=== PATIENT | male | born 1980 | race Caucasian/White ===

== ENCOUNTER 2020-02-15 02:49 | Emergency (ER) | payer OTHER ==
[~2020-02-15] VITALS: Ht 185.4 cm; Wt 111.4 kg
[~2020-02-15 02:49] MED LIST: DIAZ5TAB PO
[2020-02-15] MEDS ORDERED: ketorolac trometh. 30mg/ml inj. IV ONE (02:55)
[2020-02-15 02:56] VITALS: BP 144/82
[2020-02-15] MEDS ORDERED: LIDOcaine 1% W/epiNEPHrine 1:200,000 10ml vial IJ ONE (03:00)
[2020-02-15 04:41] LABS: NEUTROPHILS,SYNOVIAL FLUID 100 % (0-25)
[2020-02-15 04:43] LABS: APPEARANCE,SYNOVIAL FLUID CLOUDY; COLOR,SYNOVIAL FLUID YELLOW; SYN RBC 1250 /CU MM (0); SYN WBC 23750 /CU MM (0-200)
== END 2020-02-15 03:44 | disposition home or self-care (01) ==
LOC: ER 02:49
DX: M70.51 Other bursitis of knee, right knee (principal); Z72.89 Other problems related to lifestyle; Z79.899 Other long term (current) drug therapy; Y93.89 Activity, other specified
CPT/HCPCS: 20610; 73560; 89051; 96374; 99284; J1885

== ENCOUNTER 2020-02-18 10:26 | Emergency (ER) | payer OTHER ==
[~2020-02-18] VITALS: Ht 185.4 cm; Wt 111.4 kg
[2020-02-18 10:37] VITALS: BP 133/83
[2020-02-18] MEDS ORDERED: cephalexin 250mg capsule PO ONE (11:25)
[2020-02-18] MEDS ORDERED: HYDR-4353 PO (11:30)
[2020-02-18] MEDS ORDERED: CEPH500C5 PO (11:30)
== END 2020-02-18 11:52 | disposition home or self-care (01) ==
LOC: ER 10:27
DX: M70.51 Other bursitis of knee, right knee (principal); Z72.89 Other problems related to lifestyle; Z79.899 Other long term (current) drug therapy; Y93.89 Activity, other specified
CPT/HCPCS: 29505; 99283

== ENCOUNTER 2020-02-21 09:13 | Inpatient (IN) | payer OTHER ==
[~2020-02-21] VITALS: Ht 154.9 cm; Wt 111.4 kg
[~2020-02-21 09:13] MED LIST changes: +CEPH500C5 PO; +HYDR-4353 PO
[2020-02-21] MEDS ORDERED: vancomycin/NS 1 GM ADD-VANTAGE 250 ML IV ONE (09:40)
[2020-02-21] MEDS ORDERED: normal saline 1000ML IV soln IVB ONE (09:40)
[2020-02-21] MEDS ORDERED: piperacillin/tazo 3.375gm/50ml 50 ML IV ONE (09:40)
[2020-02-21 09:51] LABS: BASOPHILS # (AUTO) 0.1 X10'3 (0-0.2); BASOPHILS % (AUTO) 0.8 % (0-1); EOSINOPHILS # (AUTO) 0.1 X10'3 (0-0.9); EOSINOPHILS % (AUTO) 1.2 % (0-6); HEMATOCRIT 41.3 % (42.0-52.0); HEMOGLOBIN 14.1 g/dl (14.0-17.9); LYMPHOCYTES # (AUTO) 1.6 X10'3 (1.1-4.8); LYMPHOCYTES % (AUTO) 14.6 % (21-51); MEAN CORPUSCULAR HEMOGLOBIN 28.9 PG (27.0-31.0); MEAN CORPUSCULAR HGB CONC 34.2 g/dL (33.0-36.5); MEAN CORPUSCULAR VOLUME 84.6 FL (78-98); MEAN PLATELET VOLUME 8.4 FL (7.4-10.4); MONOCYTES % (AUTO) 8.7 % (2-12); NEUTROPHILS # (AUTO) 8.4 X10'3 (1.8-7.7); NEUTROPHILS % (AUTO) 74.7 % (42-75); PLATELET COUNT 251 X10'3 (140-440); RED BLOOD COUNT 4.89 X10'6 (4.70-6.10); RED CELL DISTRIBUTION WIDTH 12.5 % (11.5-14.5); WHITE BLOOD COUNT 11.2 X10'3 (4.5-11.0)
[2020-02-21 10:04] LABS: ALANINE AMINOTRANSFERASE 210 U/L (12-78); ALBUMIN 3.3 G/DL (3.4-5.0); ALBUMIN/GLOBULIN RATIO 0.7 (1.1-1.5); ALKALINE PHOSPHATASE 279 IU/L (46-116); ANION GAP 10 (8-16); ASPARTATE AMINO TRANSFERASE 56 U/L (10-37); BILIRUBIN,TOTAL 0.6 MG/DL (0.1-1.0); BLOOD UREA NITROGEN 10 MG/DL (7-18); BUN/CREATININE RATIO 10.4 (5.4-32.0); CALCIUM 9.2 MG/DL (8.5-10.1); CHLORIDE 100 MMOL/L (99-107); CREATININE 0.96 MG/DL (0.60-1.10); GLUCOSE 119 MG/DL (70-104); POTASSIUM 3.2 MMOL/L (3.5-5.1); SODIUM 135 MMOL/L (135-145); TOTAL CARBON DIOXIDE 24.8 MMOL/L (24-32); eGFR 86 ML/MIN
[2020-02-21] MEDS ORDERED: LIDOcaine 1% 30ml preserv. free vial IJ ONE (10:10)
--- NOTE | 2020-02-21 10:14 | NUR ---
Dr Fallon in room for procedure to right knee. Area prepped with betadine scrub and hair clipped from surgical site. Area numbed with regular lidocaine.
[2020-02-21] MEDS ORDERED: morphine 4 MG/ML inj SYRINge IV ONE (10:25)
[2020-02-21] MEDS ORDERED: ondansetron/PF 4mg/2ml inj IV ONE (10:25)
[2020-02-21] MEDS ORDERED: magnesium hydroxide 30ml (MOM) UD suspension PO PRN (10:30)
[2020-02-21] MEDS ORDERED: HYDROcodone/acetaminophen 5mg/325mg tablet PO PRN (10:30)
[2020-02-21] MEDS ORDERED: potassium Cl 20 mEq SR tablet PO PRN (10:30)
[2020-02-21] MEDS ORDERED: magnesium 2GM in 50ml NS 50 ML IV PRN (10:30)
[2020-02-21] MEDS ORDERED: acetaminophen 325mg tablet PO PRN ×2 (10:30)
[2020-02-21] MEDS ORDERED: bisacodyl 10mg suppository rectal RC PRN (10:30)
[2020-02-21] MEDS ORDERED: morphine 2 MG/ML inj. syringe IV PRN ×2 (10:30)
[2020-02-21] MEDS ORDERED: magnesium 4gm in 100ml NS 100 ML IV PRN (10:30)
[2020-02-21] MEDS ORDERED: magnesium Cl slow-release 64mg tablet PO PRN (10:30)
[2020-02-21] MEDS ORDERED: acetaminophen 650mg rectal suppository RC PRN (10:30)
[2020-02-21] MEDS ORDERED: ondansetron/PF 4mg/2ml inj IV PRN (10:30)
[2020-02-21] MEDS ORDERED: mag hydrox/Alum hydrox/simeth 30ml oral suspension PO PRN (10:30)
[2020-02-21] MEDS ORDERED: potassium CL 10mEq/100ml bag 100 ML IV PRN ×2 (10:30)
[2020-02-21] MEDS ORDERED: diphenhydrAMINE 25mg capsule PO PRN (10:30)
[2020-02-21] MEDS: normal saline 1000ml 1,000 ML IV SCH ×2 (11:06→20:30)
[2020-02-21 11:09] LABS: HEMOGLOBIN A1C 5.1 % (4.5-6.2)
[2020-02-21] MEDS: HYDROcodone/acetaminophen 10/325mg tab PO PRN ×3 (11:12→23:27)
[2020-02-21] MEDS ORDERED: CITA20TA28 PO (11:50)
--- NOTE | 2020-02-21 13:30 | NUR ---
Patient in room ORTHO 4008. I have received report from PAKO AGUILLON and had the opportunity to ask questions and assume patient care.
[2020-02-21 14:12] VITALS: BP 119/65
[2020-02-21] MEDS: piperacillin/tazo 3.375gm/50ml 50 ML IV SCH ×2 (16:26→23:14)
[2020-02-21] MEDS: potassium Cl 20 mEq SR tablet PO PRN ×2 (16:35→20:30)
--- NOTE | 2020-02-21 17:05 | NUR ---
PAGER ID: [phone] MESSAGE: JOSE A DRAKE. PT REQUESTING COLACE AND MELATONIN FOR SLEEP. [facility] [id number]
[2020-02-21 18:30] VITALS: BP 120/73
--- NOTE | 2020-02-21 18:31 | NUR ---
Problems reprioritized. Patient report given, questions answered & plan of care reviewed with LEXA AGUILLON.
--- NOTE | 2020-02-21 18:31 | NUR ---
PT REFUSED MRSA SWAB
[2020-02-21] MEDS: heparin, porcine 5000 units/ml vial SQ SCH (19:37)
[2020-02-21] MEDS: K and/or MAG REPLACEMENT MC SCH (19:39)
--- NOTE | 2020-02-21 20:40 | NUR ---
MESSAGE: [id number] JOSE A DRAKE HERE FOR SEPTIC KNEE BURSITIS, IS NOT HAVING MUCH RELIEF FROM [facility] AND LIKES TO TRY TORADOL. ALSO REQUESTING COLACE AND MELATONIN. THANK YOU. FROM [id number]
[2020-02-21] MEDS ORDERED: ketorolac trometh. 30mg/ml inj. IV ONE (20:45)
[2020-02-21] MEDS: docusate sod 100mg capsule PO SCH (21:11)
[2020-02-21 22:00] VITALS: BP 123/80
[2020-02-21] MEDS: Melatonin 3mg tablet PO SCH (23:13)
[2020-02-22] MEDS: HYDROcodone/acetaminophen 10/325mg tab PO PRN ×4 (05:02→19:16)
[2020-02-22 05:46] LABS: RED CELL DISTRIBUTION WIDTH 12.4 % (11.5-14.5); WHITE BLOOD COUNT 7.8 X10'3 (4.5-11.0)
[2020-02-22 05:50] LABS: BASOPHILS % (AUTO) 0.4 % (0-1); EOSINOPHILS # (AUTO) 0.2 X10'3 (0-0.9); EOSINOPHILS % (AUTO) 2.3 % (0-6); HEMOGLOBIN 12.1 g/dl (14.0-17.9); LYMPHOCYTES # (AUTO) 1.3 X10'3 (1.1-4.8); MEAN CORPUSCULAR HGB CONC 33.6 g/dL (33.0-36.5); MEAN CORPUSCULAR VOLUME 86.3 FL (78-98); MEAN PLATELET VOLUME 8.6 FL (7.4-10.4); MONOCYTES # (AUTO) 0.7 X10'3 (0-0.9); MONOCYTES % (AUTO) 8.4 % (2-12); NEUTROPHILS # (AUTO) 5.6 X10'3 (1.8-7.7); NEUTROPHILS % (AUTO) 71.9 % (42-75); PLATELET COUNT 224 X10'3 (140-440); RED BLOOD COUNT 4.17 X10'6 (4.70-6.10)
--- NOTE | 2020-02-22 06:00 | NUR ---
0600 vitals not documented r/t refusal on noc shift. VSS in previous assessments.
[2020-02-22 06:04] LABS: ALANINE AMINOTRANSFERASE 165 U/L (12-78); ALBUMIN 2.7 G/DL (3.4-5.0); ALBUMIN/GLOBULIN RATIO 0.6 (1.1-1.5); ALKALINE PHOSPHATASE 238 IU/L (46-116); ANION GAP 9 (8-16); ASPARTATE AMINO TRANSFERASE 46 U/L (10-37); BILIRUBIN,TOTAL 0.5 MG/DL (0.1-1.0); BLOOD UREA NITROGEN 12 MG/DL (7-18); BUN/CREATININE RATIO 13.8 (5.4-32.0); CALCIUM 8.5 MG/DL (8.5-10.1); CHLORIDE 103 MMOL/L (99-107); CHOL/HDL RATIO 4.5 (0.00-4.99); CHOLESTEROL 159 MG/DL (0-200); CREATININE 0.87 MG/DL (0.60-1.10); GLUCOSE 101 MG/DL (70-104); HDL CHOLESTEROL 35 MG/DL (35-60); LDL CHOLESTEROL 106 MG/DL (50-100); PHOSPHORUS 3.7 MG/DL (2.3-4.5); POTASSIUM 4.1 MMOL/L (3.5-5.1); SODIUM 138 MMOL/L (135-145); TOTAL CARBON DIOXIDE 26.5 MMOL/L (24-32); TRIGLYCERIDES 75 MG/DL (20-135); eGFR > 90 ML/MIN
--- NOTE | 2020-02-22 06:25 | NUR ---
Received report from Marii AGUILLON, [facility].
[2020-02-22] MEDS: normal saline 1000ml 1,000 ML IV SCH ×2 (06:30→15:08)
--- NOTE | 2020-02-22 06:32 | NUR ---
Patient in room ORTHO 4016. I have received report from HENNA WILLOUGHBY and had the opportunity to ask questions and assume patient care. Addendum: 02/22/20 at 0634 by Marii Montoya RN GAVE REPORT TO HENNA WILLOUGHBY
[2020-02-22] MEDS: K and/or MAG REPLACEMENT MC SCH ×2 (07:21→20:00)
[2020-02-22] MEDS: heparin, porcine 5000 units/ml vial SQ SCH ×2 (07:22→20:00)
[2020-02-22] MEDS: docusate sod 100mg capsule PO SCH ×2 (07:22→21:29)
[2020-02-22] MEDS: citalopram 20mg tablet PO SCH (07:22)
[2020-02-22] MEDS: piperacillin/tazo 3.375gm/50ml 50 ML IV SCH ×3 (07:22→23:30)
[2020-02-22 08:36] LABS: TOTAL CELLS COUNTED 100
[2020-02-22 08:37] LABS: LARGE PLATELETS FEW; PLATELET ESTIMATE NORMAL; TOXIC GRANULATION 1+
[2020-02-22 08:38] LABS: SMUDGE CELLS FEW
[2020-02-22 08:52] LABS: METAMYLEOCYTES% (MANUAL) 2 % (0-0); NEUTROPHILS % (MANUAL) 75 % (42-75)
--- NOTE | 2020-02-22 18:26 | NUR ---
Gave report to Marii AGUILLON, transferred care.
[2020-02-22] MEDS ORDERED: VANCOMYCIN LEVEL IV ONE (18:30)
[2020-02-22] MEDS: lactobacillus rhamnosus 10,000 MMU CELLS/CAPSULE PO SCH (21:29)
[2020-02-22] MEDS: Melatonin 3mg tablet PO SCH (21:29)
--- NOTE | 2020-02-22 23:52 | NUR ---
pt has been refusing to take VS.
[2020-02-23] MEDS: normal saline 1000ml 1,000 ML IV SCH ×2 (02:30→12:30)
[2020-02-23 06:17] LABS: BASOPHILS % (AUTO) 0.7 % (0-1); EOSINOPHILS # (AUTO) 0.2 X10'3 (0-0.9); EOSINOPHILS % (AUTO) 3.6 % (0-6); HEMATOCRIT 36.2 % (42.0-52.0); HEMOGLOBIN 12.3 g/dl (14.0-17.9); LYMPHOCYTES # (AUTO) 1.2 X10'3 (1.1-4.8); LYMPHOCYTES % (AUTO) 18.4 % (21-51); MEAN CORPUSCULAR HGB CONC 33.9 g/dL (33.0-36.5); MEAN CORPUSCULAR VOLUME 85.5 FL (78-98); MEAN PLATELET VOLUME 8.4 FL (7.4-10.4); MONOCYTES # (AUTO) 0.5 X10'3 (0-0.9); MONOCYTES % (AUTO) 7.4 % (2-12); NEUTROPHILS # (AUTO) 4.4 X10'3 (1.8-7.7); NEUTROPHILS % (AUTO) 69.9 % (42-75); PLATELET COUNT 237 X10'3 (140-440); RED BLOOD COUNT 4.24 X10'6 (4.70-6.10); RED CELL DISTRIBUTION WIDTH 12.3 % (11.5-14.5); WHITE BLOOD COUNT 6.3 X10'3 (4.5-11.0)
--- NOTE | 2020-02-23 06:22 | NUR ---
Patient in room ORTHO 4016. I have received report from HENNA LINDQUIST and had the opportunity to ask questions and assume patient care.
--- NOTE | 2020-02-23 06:30 | NUR ---
Problems reprioritized. Patient report given, questions answered & plan of care reviewed with HENNA JOAQUIN.
[2020-02-23 06:35] LABS: ALANINE AMINOTRANSFERASE 142 U/L (12-78); ALBUMIN 2.8 G/DL (3.4-5.0); ALBUMIN/GLOBULIN RATIO 0.7 (1.1-1.5); ALKALINE PHOSPHATASE 228 IU/L (46-116); ANION GAP 9 (8-16); ASPARTATE AMINO TRANSFERASE 39 U/L (10-37); BILIRUBIN,TOTAL 0.4 MG/DL (0.1-1.0); BLOOD UREA NITROGEN 9 MG/DL (7-18); BUN/CREATININE RATIO 10.5 (5.4-32.0); CALCIUM 8.7 MG/DL (8.5-10.1); CHLORIDE 105 MMOL/L (99-107); CREATININE 0.86 MG/DL (0.60-1.10); GLUCOSE 106 MG/DL (70-104); PHOSPHORUS 3.8 MG/DL (2.3-4.5); SODIUM 139 MMOL/L (135-145); TOTAL CARBON DIOXIDE 25.3 MMOL/L (24-32); eGFR > 90 ML/MIN
--- NOTE | 2020-02-23 06:47 | NUR ---
patient refused 0600 vitals.
[2020-02-23] MEDS: piperacillin/tazo 3.375gm/50ml 50 ML IV SCH (07:47)
[2020-02-23] MEDS: citalopram 20mg tablet PO SCH (07:50)
[2020-02-23] MEDS: lactobacillus rhamnosus 10,000 MMU CELLS/CAPSULE PO SCH (07:50)
[2020-02-23] MEDS: docusate sod 100mg capsule PO SCH (07:50)
[2020-02-23] MEDS: heparin, porcine 5000 units/ml vial SQ SCH (08:00)
[2020-02-23] MEDS: K and/or MAG REPLACEMENT MC SCH (08:00)
--- NOTE | 2020-02-23 10:23 | NUR ---
RENE GARCÍA IN ROOM WITH PATIENT ASSESSING WOUND TO RIGHT KNEE. PATIENT WAS GIVEN VERBAL AND DEMONSTRATION OF WOUND CARE DRESSING TO RIGHT KNEE THIS MORNING. RENE GARCÍA REINFORCED TEACHING. PATIENT VERBALIZES UNDERSTANDING OF TEACHING AND STATED HE IS "MORE THAN CAPABLE OF DOING THIS AT HOME"
[2020-02-23 10:31] VITALS: BP 144/86
[2020-02-23] MEDS ORDERED: LACT1CAP26 PO (10:54)
[2020-02-23] MEDS ORDERED: DOXY-243 PO (10:54)
[2020-02-23] MEDS ORDERED: CEPH250T PO (10:54)
[2020-02-23 14:22] LABS: HBSAG SCREEN Negative (Negative); HEP A AB, IGM Negative (Negative); HEPATITIS C ANTIBODY <0.1 s/co ratio (0.0-0.9)
--- NOTE | 2020-02-23 14:22 | NUR ---
RETURNED FROM LUNCH BREAK TO BREAK HIMA AGUILLON STRIPPING PATIENT'S ROOM. 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 Addendum: 02/23/20 at 1429 by David Yeager RN MIS HERNANDEZ RN DISCUSSED [facility] PATIENT DISCHARGE INSTRUCTIONS AND DC'D PATIENT'S IV.
== END 2020-02-23 14:00 | disposition home or self-care (01) | DRG 465 ==
LOC: ER 09:13 → EEVIPCON 09:13 → ED HOLD 10:30 → ORTHO 4S 13:53
PROVIDERS: ADMIT Family Medicine; ATTEND Family Medicine
PROC: 0JBN0ZZ Excision of Right Lower Leg Subcutaneous Tissue and Fascia, Open Approach (ICD-10-PCS; principal; 2020-02-21)
DX: M70.41 Prepatellar bursitis, right knee (principal); D72.829 Elevated white blood cell count, unspecified; F10.10 Alcohol abuse, uncomplicated; K76.0 Fatty (change of) liver, not elsewhere classified; Z82.49 Family history of ischemic heart disease and other diseases of the circulatory system
CPT/HCPCS: 36415; 76700; 80053; 80061; 80202; 83036; 83605; 83735; 84100; 84145; 84443; 85025; 86705; 86706; 86709; 86803; 87040; 87070; 87340; 93971; 96365; 96375; 97161; 97530; 99285; G0378; J1885; J2270; J2405; J2543; J3370; J7030

== ENCOUNTER 2020-05-11 22:02 | Outpatient (CLI) | payer BC ==
[~2020-05-11 22:02] MED LIST changes: +CEPH250T PO; -CEPH500C5 PO; +CITA20TA28 PO; -DIAZ5TAB PO; -HYDR-4353 PO; +LACT1CAP26 PO
[2020-05-11 22:21] LABS: CLARITY,URINE CLEAR (Clear); COLOR,URINE YELLOW (Yellow); GLUCOSE, URINE NEGATIVE (Neg); KETONES,URINE NEGATIVE (Neg); LEUKOCYTE ESTERASE ,URINE NEGATIVE (Neg); NITRITES, URINE NEGATIVE (Neg); OCCULT BLOOD,URINE NEGATIVE (Neg); PROTEIN,URINE NEGATIVE (Neg); UROBILINOGEN,URINE 0.2 E.U/dL (0.2-1.0)
[2020-05-11 22:22] LABS: UA COLLECTION TYPE CLN CATCH MIDSTREAM
[2020-05-11 22:56] LABS: BASOPHILS % (AUTO) 0.4 % (0-1); EOSINOPHILS # (AUTO) 0.2 X10'3 (0-0.9); EOSINOPHILS % (AUTO) 2.8 % (0-6); HEMATOCRIT 43.3 % (42.0-52.0); HEMOGLOBIN 14.9 g/dl (14.0-17.9); LYMPHOCYTES # (AUTO) 1.9 X10'3 (1.1-4.8); LYMPHOCYTES % (AUTO) 31.3 % (21-51); MEAN CORPUSCULAR HEMOGLOBIN 29.2 PG (27.0-31.0); MEAN CORPUSCULAR HGB CONC 34.4 g/dL (33.0-36.5); MEAN CORPUSCULAR VOLUME 84.8 FL (78-98); MEAN PLATELET VOLUME 9.1 FL (7.4-10.4); MONOCYTES # (AUTO) 0.4 X10'3 (0-0.9); MONOCYTES % (AUTO) 6.3 % (2-12); NEUTROPHILS # (AUTO) 3.6 X10'3 (1.8-7.7); NEUTROPHILS % (AUTO) 59.2 % (42-75); PLATELET COUNT 205 X10'3 (140-440); RED BLOOD COUNT 5.11 X10'6 (4.70-6.10); RED CELL DISTRIBUTION WIDTH 13.3 % (11.5-14.5); WHITE BLOOD COUNT 6.1 X10'3 (4.5-11.0)
[2020-05-11 23:20] LABS: ALANINE AMINOTRANSFERASE 58 U/L (12-78); ALBUMIN 4.2 G/DL (3.4-5.0); ALBUMIN/GLOBULIN RATIO 1.2 (1.1-1.5); ALKALINE PHOSPHATASE 82 IU/L (46-116); ANION GAP 8 (8-16); ASPARTATE AMINO TRANSFERASE 24 U/L (10-37); BILIRUBIN,TOTAL 0.3 MG/DL (0.1-1.0); BLOOD UREA NITROGEN 13 MG/DL (7-18); BUN/CREATININE RATIO 14.8 (5.4-32.0); CHLORIDE 103 MMOL/L (99-107); CHOL/HDL RATIO 4.4 (0.00-4.99); CHOLESTEROL 201 MG/DL (0-200); CREATININE 0.88 MG/DL (0.60-1.10); GLUCOSE 97 MG/DL (70-104); HDL CHOLESTEROL 46 MG/DL (35-60); LDL CHOLESTEROL 134 MG/DL (50-100); POTASSIUM 3.9 MMOL/L (3.5-5.1); SODIUM 139 MMOL/L (135-145); TOTAL CARBON DIOXIDE 27.7 MMOL/L (24-32); TOTAL PROTEIN 7.8 G/DL (6.4-8.2); TRIGLYCERIDES 150 MG/DL (20-135); eGFR > 90 ML/MIN
== END 2020-05-11 23:59 | disposition home or self-care (01) ==
LOC: LAB 22:02
PROVIDERS: ATTEND Family Medicine
DX: Z00.00 Encounter for general adult medical examination without abnormal findings (principal)
CPT/HCPCS: 36415; 80053; 80061; 81003; 84439; 84443; 85025

== ENCOUNTER 2020-06-07 21:20 | Emergency (ER) | payer BC ==
[~2020-06-07] VITALS: Ht 185.4 cm; Wt 109.1 kg
[2020-06-07 22:46] VITALS: BP 148/68
--- NOTE | 2020-06-07 22:48 | NUR ---
2nd covid swab obtained per storage battery charger as first was a rapid as requested by , [place] has requested a send out [place] and charge nurse had this recorder swab pt again to the left nares for a send out result to be within the guidelines of hospital policy . pt sent home to self isolate
== END 2020-06-07 22:47 | disposition home or self-care (01) ==
LOC: ER 21:20
DX: J02.9 Acute pharyngitis, unspecified (principal); R53.1 Weakness; R53.83 Other fatigue; R51.9 Headache, unspecified; Z20.828 Contact with and (suspected) exposure to other viral communicable diseases; Z72.89 Other problems related to lifestyle; Z79.2 Long term (current) use of antibiotics; Z79.899 Other long term (current) drug therapy
CPT/HCPCS: 87635; 99283; C9803

== ENCOUNTER 2020-12-26 05:02 | Emergency (ER) | payer BC, OTHER ==
[~2020-12-26] VITALS: Ht 182.9 cm; Wt 105.0 kg
[2020-12-26] MEDS ORDERED: LIDOcaine 1% W/epiNEPHrine 1:200,000 10ml vial IJ ONE (05:05)
[2020-12-26] MEDS ORDERED: LIDOcaine/epinephrine/tetracaine TOPICAL sol 3 ML syringe TOP ONE (05:10)
[2020-12-26 05:59] VITALS: BP 126/82
--- NOTE | 2020-12-26 06:01 | NUR ---
[place] PD case#[id number]
== END 2020-12-26 06:02 | disposition home or self-care (01) ==
LOC: ER 05:03
DX: S01.111A Laceration without foreign body of right eyelid and periocular area, initial encounter (principal); Z72.89 Other problems related to lifestyle; Z79.2 Long term (current) use of antibiotics; Z79.899 Other long term (current) drug therapy; X58.XXXA Exposure to other specified factors, initial encounter; Y93.89 Activity, other specified; Y92.89 Other specified places as the place of occurrence of the external cause; Y99.8 Other external cause status
CPT/HCPCS: 12011; 99282